=== PATIENT | female | born 1945 | race Caucasian/White ===

== ENCOUNTER 2017-12-29 07:50 | Inpatient (IN) | payer MEDICARE, OTHER ==
[2017-12-29 07:58] VITALS: BMI 32.9
[2017-12-29] MEDS ORDERED: Sodium Chloride 0.9% 1,000 ML IV STA (08:22)
--- NOTE | 2017-12-29 08:22 | C.PDOC ---
History Of Present Illness 72yo female, presents to ED with complaints of fever, cough and congestion for the past 2 weeks. She reports the cough is productive with white sputum. She also reports associated bodyaches. Patient denies any recent travels, sick contact, history of COPD or emphysema. Patient also denies a history of asthma but states she has used an Albuterol pump in the past. She has no other medical complaints. Time Seen by Provider: 12/29/17 08:07 Chief Complaint (Nursing): Flu-like Symptoms History Per: Patient History/Exam Limitations: no limitations Onset/Duration Of Symptoms: Days Current Symptoms Are (Timing): Still Present Sick Contacts (Context): None Associated Symptoms: Fever, Sore Throat, Cough Past Medical History Reviewed: Historical Data, Nursing Documentation, Vital Signs Vital Signs: Last Vital Signs Temp 97.6 F 12/29/17 07:55 Pulse 63 12/29/17 09:44 Resp 18 12/29/17 09:44 BP 98/51 L 12/29/17 09:44 Pulse Ox 96 12/29/17 09:51 - Medical History PMH: Asthma, HTN, Pneumonia Denies: Chronic Kidney Disease Surgical History: Cholecystectomy Family History: States: No Known Family Hx - Social History Hx Alcohol Use: No Hx Substance Use: No - Immunization History Hx Tetanus Toxoid Vaccination: No Hx Influenza Vaccination: Yes Hx Pneumococcal Vaccination: No Review Of Systems Except As Marked, All Systems Reviewed And Found Negative. Cardiovascular: Negative for: Chest Pain Respiratory: Negative for: Shortness of Breath Physical Exam - Physical Exam Additional Physical Exam Comments: Constitutional: No acute distress. Head: Normocephalic. Atraumatic. Eyes: PERRL. ENT: Moist mucous membranes. No pharyngeal erythema or exudates. Neck: Supple. No nuchal rigidity. Cardiovascular: Regular rate. Radial pulse 2+ bilaterally. Chest: No tenderness. Respiratory: Expiratory wheeze bilaterally. GI: Soft. Nontender. Nondistended. Back: No CVA tenderness. Musculoskeletal: No tenderness or swelling of extremities. Skin: No rash. Neurologic: Alert, no focal deficit. ED Course And Treatment - Laboratory Results Result Diagrams: 12/29/17 08:33 12/29/17 08:33 O2 Sat by Pulse Oximetry: 96 (RA) Pulse Ox Interpretation: Normal Medical Decision Making Medical Decision Making: Impression: Cough, congestion, tactile fever x 2 weeks Plan: -- CMP -- CBC -- CXR -- Rapid Flu -- Rapid Strep -- Duoneb 3ml INH -- Toradol 30mg IVP -- IV Fluids 0852 CXR FINDINGS: LUNGS: No active pulmonary disease. PLEURA: No significant pleural effusion identified. No pneumothorax apparent. CARDIOVASCULAR: Normal. OSSEOUS STRUCTURES: Thoracic spondylosis. Bilateral shoulder arthrosis VISUALIZED UPPER ABDOMEN: Normal. OTHER FINDINGS: None. IMPRESSION: No active disease. No interval pathology noted Patient feels mildly better after duoneb but continues to feel short of breath. Peak flow 150. Pulse oximetry 94%. Dr. Schumacher accepts patient to medical service. residential supervisor paged. Disposition Discussed With : Toño Schumacher Jr. Doctor Will See Patient In The: Hospital - Disposition Disposition: HOSPITALIZED Disposition Time: 09:51 Condition: GUARDED Forms: [facility] (Maltese) - Clinical Impression Clinical Impression: Influenza-like illness, Asthma exacerbation, Hypoxia - Scribe Statement The provider has reviewed the documentation as recorded by the Scribe (Sheron Virk) Provider Attestation: All medical record entries made by the Scribe were at my direction and personally dictated by me. I have reviewed the chart and agree that the record accurately reflects my personal performance of the history, physical exam, medical decision making, and the department course for this patient. I have also personally directed, reviewed, and agree with the discharge instructions and disposition.
[2017-12-29] MEDS ORDERED: Albuterol-Ipratrop 3 mg / 0.5 (3 ml) UD IH STA ×3 (08:23→10:00)
[2017-12-29] MEDS ORDERED: Sodium Chloride 0.9% 1,000 ML ONE (08:35)
[2017-12-29] MEDS ORDERED: Albuterol-Ipratrop 3 mg / 0.5 (3 ml) UD ONE ×2 (08:35→10:26)
[2017-12-29 08:38] LABS: BASO # 0.1 K/uL (0.0-0.2); BASO % 1.5 % (0.0-2.0); EOS # 0.3 K/uL (0.0-0.7); EOS % 3.6 % (0.0-4.0); HEMOGLOBIN 12.7 g/dL (11.0-16.0); LYMPH # 2.7 K/uL (1.0-4.3); LYMPH % 32.4 % (20.0-40.0); MEAN CELL VOLUME 90.7 fL (81.0-99.0); MEAN CORPUSCULAR HEMOGLOBIN 31.1 pg (27.0-31.0); MEAN CORPUSCULAR HGB CONC 34.3 g/dL (33.0-37.0); MEAN PLATELET VOLUME 10.4 fL (7.2-11.7); MONO # 0.9 K/uL (0.0-0.8); MONO % 10.3 % (0.0-10.0); NEUT # 4.4 K/uL (1.8-7.0); NEUT % 52.2 % (50.0-75.0); NRBC % 0.1 % (0.0-2.0); RBC 4.1 Mil/uL (3.80-5.20); RED CELL DISTRIBUTION WIDTH 13.4 % (11.5-14.5); WHITE BLOOD COUNT 8.4 K/uL (4.8-10.8)
--- NOTE | 2017-12-29 08:50 | RAD ---
HISTORY: cough COMPARISON: No prior. TECHNIQUE: Chest PA and lateral FINDINGS: LUNGS: No active pulmonary disease. PLEURA: No significant pleural effusion identified. No pneumothorax apparent. CARDIOVASCULAR: Normal. OSSEOUS STRUCTURES: Thoracic spondylosis. Bilateral shoulder arthrosis VISUALIZED UPPER ABDOMEN: Normal. OTHER FINDINGS: None. IMPRESSION: No active disease. No interval pathology noted
[2017-12-29 08:51] LABS: CALCIUM 9.3 mg/dl (8.6-10.4); GFR AFRICAN-AMERICAN > 60; GFR NON-AFRICAN AMERICAN > 60
[2017-12-29 08:53] LABS: ALT/SGPT 20 U/L (9-52); AST/SGOT 29 U/L (14-36); BLOOD UREA NITROGEN 15 mg/dL (7-17)
[2017-12-29 09:22] LABS: INFLUENZA A B NEGATIVE FOR FLU A/B (NEGATIVE)
[2017-12-29] MEDS ORDERED: MethylPREDNISolone 40 mg Vial IVP STA (09:59)
[2017-12-29] MEDS ORDERED: Albuterol-Ipratrop 3 mg / 0.5 (3 ml) UD INH PRN (13:22)
[2017-12-29] MEDS ORDERED: Pneumococcal 23-Valent Vaccine IM ONE (14:11)
--- NOTE | 2017-12-29 14:25 | CP.PCM.HP ---
History of Present Illness - History of Present Illness History of Present Illness: CC: cough/ SOB 72 year old female with past medical history of hypertension, hyperlipidemia, pneumonia and GERD presents to the ED with complaint of cough, sore throat, difficulty breathing for two weeks, and generalized body aches.Patient is [place] speaking and her is at bedside. Patient states for the past two weeks she has had a productive cough that is constant throughout the day and keeps her awake at night. Patient states she has come to the ED today because her symptoms have not gotten better. She states the phlegm is white and thick. With the cough, she states she has had a sore throat, headache and sinus pressure for the two weeks as well. Patient admits to difficulty walking up more than one flight of stairs. Patient denies current fevers or chills but admits to subjective fever last week and total body aches. Patient also complains of diffuse chest pain which she says she has had since she had pneumonia 1 year ago. She says the aches are deep and constant. Patient denies trial of any over the counter medications nor any alleviating factors. Patient is from the [place]. She is a potential poor historian. She states she had a procedure requiring femoral IV access but cannot remember if it was for her heart or for peripheral vascular disease. Patient has been admitted to hospital in the past for pneumonia 1 year ago. Patient denies recent travel or sick contacts. PMD: Dr. Charles Carey Past medical history: HTN, HLD, GERD, potential CAD/PVD? Allergies: seasonal allergies, NKDA Surgical: 2 sections, cholecystectomy, cath 4 years ago? Family history: brother from heart attack at age 42, cousin with cancer "all over" Medications: amlodipine 2.5 mg po daily, ergocalciferol 50,000 unit once/week, lovastatin 20 mg po daily, lisinopril/hydrochlorthiazide 25/20 po daily, famotidine 40mg daily, dorzolamide 2%/timolol.5% 1 drop OP daily Social: denies lifetime tobacco use, denies recreational drug use, admits to social alcohol use once/month. Patient is unemployed. ROS: negatives: chills, nausea, vomiting, constipation, diarrhea, leg swelling, weight changes Positives: fever (last week), headache, sinus pressure, sore throat, body aches , cough, shortness of breath, acid reflux. Present on Admission - Present on Admission Any Indicators Present on Admission: No History of DVT/PE: No History of Uncontrolled Diabetes: No Urinary Catheter: No Decubitus Ulcer Present: No Review of Systems - Constitutional Constitutional: Fatigue, Lethargy. absent: Fever - EENT Eyes: absent: Blurred Vision Nose/Mouth/Throat: Nasal Congestion, Sore Throat - Cardiovascular Cardiovascular: Chest Pain, Dyspnea, Dyspnea on Exertion. absent: Palpitations - Respiratory Respiratory: Cough, Wheezing, Chest Congestion, Excessive Mucous Production, Pain with Coughing - Gastrointestinal Gastrointestinal: absent: Constipation, Diarrhea, Nausea, Vomiting - Genitourinary Genitourinary: absent: Difficulty Urinating, Dysuria, Hematuria - Musculoskeletal Musculoskeletal: Myalgias - Integumentary Integumentary: absent: Rash - Neurological Neurological: absent: Numbness, Tingling - Endocrine Endocrine: absent: Palpitations - Hematologic/Lymphatic Hematologic: absent: Easy Bleeding, Easy Bruising Past Patient History - Past Medical History & Family History Past Medical History?: Yes - Past Social History Smoking Status: Never Smoked - CARDIAC Hx Cardiac Disorders: Yes Hx Hypertension: Yes - PULMONARY Hx Respiratory Disorders: Yes Hx Asthma: Yes Hx Pneumonia: Yes - NEUROLOGICAL Hx Neurological Disorder: No - HEENT Hx HEENT Problems: No - RENAL Hx Chronic Kidney Disease: No - ENDOCRINE/METABOLIC Hx Endocrine Disorders: No - HEMATOLOGICAL/ONCOLOGICAL Hx Blood Disorders: No - INTEGUMENTARY Hx Dermatological Problems: No - MUSCULOSKELETAL/RHEUMATOLOGICAL Hx Musculoskeletal Disorders: No Hx Falls: No - GASTROINTESTINAL Hx Gastrointestinal Disorders: No - GENITOURINARY/GYNECOLOGICAL Hx Genitourinary Disorders: No - PSYCHIATRIC Hx Substance Use: No - SURGICAL HISTORY Hx Surgeries: Yes Hx Cholecystectomy: Yes - ANESTHESIA Hx Anesthesia: Yes Hx Anesthesia Reactions: No Hx Malignant Hyperthermia: No Has any member of the family had a problem w/ anesthesia?: No Meds Allergies/Adverse Reactions: Allergies Allergy/AdvReac Type Severity Reaction Status Date / Time No Known Allergies Allergy Verified 12/29/17 07:52 Physical Exam - Constitutional Appears: Non-toxic, No Acute Distress - Head Exam Head Exam: ATRAUMATIC, NORMAL INSPECTION, NORMOCEPHALIC - Eye Exam Eye Exam: EOMI, Normal appearance - ENT Exam ENT Exam: Mucous Membranes Moist, Normal Oropharynx - Neck Exam Neck exam: Negative for: Tenderness - Respiratory Exam Respiratory Exam: Chest Wall Tenderness, Decreased Breath Sounds. absent: Rales , Rhonchi, Wheezes - Cardiovascular Exam Cardiovascular Exam: REGULAR RHYTHM, RRR, +S1, +S2, Systolic Murmur Additional comments: Chest wall tenderness to palpation - GI/Abdominal Exam GI & Abdominal Exam: Normal Bowel Sounds, Soft. absent: Tenderness - Extremities Exam Extremities exam: Positive for: normal inspection, pedal edema. Negative for: calf tenderness - Back Exam Back exam: NORMAL INSPECTION. absent: CVA tenderness (L), CVA tenderness (R) - Neurological Exam Neurological exam: Alert, Oriented x3 - Psychiatric Exam Psychiatric exam: Normal Affect, Normal Mood - Skin Skin Exam: Intact, Normal Color, Warm Results - Vital Signs Recent Vital Signs: Last Vital Signs Temp 98 F 12/29/17 13:06 Pulse 61 12/29/17 13:30 Resp 20 12/29/17 13:41 BP 122/77 12/29/17 13:06 Pulse Ox 94 L 12/29/17 13:06 - Labs Result Diagrams: 12/29/17 08:33 12/29/17 08:33 Labs: Laboratory Results - last 24 hr 12/29/17 12/29/17 12/29/17 08:22 08:33 08:33 WBC 8.4 RBC 4.10 Hgb 12.7 Hct 37.2 MCV 90.7 MCH 31.1 H MCHC 34.3 RDW 13.4 Plt Count 196 MPV 10.4 Neut % (Auto) 52.2 Lymph % (Auto) 32.4 [place] % (Auto) 10.3 H Eos % (Auto) 3.6 Baso % (Auto) 1.5 Neut # (Auto) 4.4 Lymph # (Auto) 2.7 [place] # (Auto) 0.9 H Eos # (Auto) 0.3 Baso # (Auto) 0.1 Sodium 145 Potassium 4.1 Chloride 103 Carbon Dioxide 26 Anion Gap 20 BUN 15 Creatinine 0.5 L Est GFR ( Amer) > 60 Est GFR (Non-Af Amer) > 60 Random Glucose 120 H Calcium 9.3 Total Bilirubin 0.9 AST 29 ALT 20 Alkaline Phosphatase 61 NT-Pro-B Natriuret Pep Total Protein 7.9 Albumin 4.0 Globulin 3.9 Albumin/Globulin Ratio 1.0 Influenza Typ A,B (EIA) Negative for flu a/b Grp A Beta Strep Ag Negative 12/29/17 13:33 WBC RBC Hgb Hct MCV MCH MCHC RDW Plt Count MPV Neut % (Auto) Lymph % (Auto) [place] % (Auto) Eos % (Auto) Baso % (Auto) Neut # (Auto) Lymph # (Auto) [place] # (Auto) Eos # (Auto) Baso # (Auto) Sodium Potassium Chloride Carbon Dioxide Anion Gap BUN Creatinine Est GFR ( Amer) Est GFR (Non-Af Amer) Random Glucose Calcium Total Bilirubin AST ALT Alkaline Phosphatase NT-Pro-B Natriuret Pep 80.2 Total Protein Albumin Globulin Albumin/Globulin Ratio Influenza Typ A,B (EIA) Grp A Beta Strep Ag Assessment & Plan - Assessment and Plan (Free Text) Assessment: Influenza Like Illness Peak flow 150 flu negative strep negative Pro-BNP: 80.2 Pulm consulted, Dr. Martin, help appreciated Meds: Duonebs q4h, q2h prn Solumedrol 125mg ivp given in ED, continue 40mg ivp q8h Ceftriaxone 1gm daily Azithromycin 500mg daily T Wave Inversions Lateral T wave inversions on EKG Cardiology, Dr. Iyer, consulted help appreciated ASA 325mg stat 2mg Magnesium given ASA 81mg daily ANASTACIA x 3, first Troponin I negative ECHO f/u CMP HTN continue home medications: Amlodipine 2.5mg po daily HCTZ 25mg po daily Lisinopril stopped due to cough, Losartan 25mg po daily started HLD Lovastatin NF start Crestor 2.5 mg HS GERD Pepcid 40mg po daily Prophylaxis Pepcid 40mg po daily Heparin 5000 u q12h, SCDs Heart Healthy Diet
[2017-12-29] MEDS: Azithromycin 500 MG in Sodium Chloride 0.9% 250 ML IVPB SCH (14:59)
[2017-12-29] MEDS: Albuterol-Ipratrop 3 mg / 0.5 (3 ml) UD INH SCH ×2 (15:41→20:07)
[2017-12-29 15:52] LABS: CK-MB 0.46 ng/mL (0.0-3.38)
--- NOTE | 2017-12-29 16:13 | CP.PCM.CON ---
History of Present Illness - History of Present Illness History of Present Illness: Reason for consult: shortness of breath and cough for 2 weeks 72F with PMHx of asthma presented to the ED with complaints of fever, cough, congestion and shortness of breath for 2 weeks. The cough is productive of white sputum. She denies any history of pulmonary diseases but notes she used an albuterol inhaler in the past. In the ED the patient's shortness of breath improved but remained after receiving nebullizer treatments. Patient seen and examined at bedside in no acute distress. Patient coughed during the interview and had increased effort of respiration. PMHx: asthma, HTN, arthritis PSH: cholecystectomy SH: no history of alcohol or substance use 1. Asthma exacerbation - CXR 12/29: No active pulmonary disease - Afebrile - WBC 8.4 - Flu negative - Nebullizer treatments - solu-medrol - IV zithromax and rocephin for empiric coverage - Peak flow 150. Pulse ox 94%-96% on RA 2. Acute cough, unclear etiology - 12/29 Pro- BNP = 80.2 Past Patient History - Past Medical History & Family History Past Medical History?: Yes - Past Social History Smoking Status: Never Smoked - CARDIAC Hx Cardiac Disorders: Yes Hx Hypertension: Yes - PULMONARY Hx Respiratory Disorders: Yes Hx Asthma: Yes Hx Pneumonia: Yes - NEUROLOGICAL Hx Neurological Disorder: No - HEENT Hx HEENT Problems: No - RENAL Hx Chronic Kidney Disease: No - ENDOCRINE/METABOLIC Hx Endocrine Disorders: No - HEMATOLOGICAL/ONCOLOGICAL Hx Blood Disorders: No - INTEGUMENTARY Hx Dermatological Problems: No - MUSCULOSKELETAL/RHEUMATOLOGICAL Hx Musculoskeletal Disorders: No Hx Falls: No - GASTROINTESTINAL Hx Gastrointestinal Disorders: No - GENITOURINARY/GYNECOLOGICAL Hx Genitourinary Disorders: No - PSYCHIATRIC Hx Substance Use: No - SURGICAL HISTORY Hx Surgeries: Yes Hx Cholecystectomy: Yes - ANESTHESIA Hx Anesthesia: Yes Hx Anesthesia Reactions: No Hx Malignant Hyperthermia: No Has any member of the family had a problem w/ anesthesia?: No Meds Allergies/Adverse Reactions: Allergies Allergy/AdvReac Type Severity Reaction Status Date / Time No Known Allergies Allergy Verified 12/29/17 07:52 - Medications Medications: Current Medications Albuterol/Ipratropium (Duoneb 3 Mg/0.5 Mg (3 Ml) Ud) 3 ml INH RQ4 [facility] Last Admin: 12/29/17 15:41 Dose: 3 ml Albuterol/Ipratropium (Duoneb 3 Mg/0.5 Mg (3 Ml) Ud) 3 ml INH RQ2 PRN PRN Reason: Shortness of Breath Amlodipine Besylate (Norvasc) 2.5 mg PO DAILY [facility] Aspirin (Ecotrin) 81 mg PO DAILY [facility] Ergocalciferol (Drisdol 50,000 Intl Units Cap) 1 cap PO QWK [facility] Famotidine (Pepcid) 40 mg PO DAILY [facility] Hydrochlorothiazide (Hydrodiuril) 25 mg PO DAILY [facility] Ceftriaxone Sodium 1 gm/ (Sodium Chloride) 100 mls @ 100 mls/hr IVPB DAILY [facility] PRN Reason: Protocol Last Admin: 12/29/17 13:57 Dose: 100 mls/hr Azithromycin 500 mg/ Sodium (Chloride) 250 mls @ 250 mls/hr IVPB DAILY [facility] PRN Reason: Protocol Last Admin: 12/29/17 14:59 Dose: 250 mls/hr Lisinopril (Zestril) 20 mg PO DAILY [facility] Methylprednisolone (Solu-Medrol) 40 mg IVP Q8H [facility] Pneumococcal Polyvalent Vaccine (Pneumovax 23 Vaccine) 0.5 ml IM .ONCE ONE Stop: 12/30/17 10:01 Rosuvastatin Calcium (Crestor) 2.5 mg PO HS [facility] Results - Vital Signs Recent Vital Signs: Last Vital Signs Temp 97.9 F 12/29/17 15:06 Pulse 75 12/29/17 15:42 Resp 20 12/29/17 15:06 BP 106/69 12/29/17 15:06 Pulse Ox 95 12/29/17 15:06 - Labs Result Diagrams: 12/29/17 08:33 12/29/17 08:33 Labs: Laboratory Results - last 24 hr 12/29/17 12/29/17 12/29/17 08:22 08:33 08:33 WBC 8.4 RBC 4.10 Hgb 12.7 Hct 37.2 MCV 90.7 MCH 31.1 H MCHC 34.3 RDW 13.4 Plt Count 196 MPV 10.4 Neut % (Auto) 52.2 Lymph % (Auto) 32.4 [place] % (Auto) 10.3 H Eos % (Auto) 3.6 Baso % (Auto) 1.5 Neut # (Auto) 4.4 Lymph # (Auto) 2.7 [place] # (Auto) 0.9 H Eos # (Auto) 0.3 Baso # (Auto) 0.1 Sodium 145 Potassium 4.1 Chloride 103 Carbon Dioxide 26 Anion Gap 20 BUN 15 Creatinine 0.5 L Est GFR ( Amer) > 60 Est GFR (Non-Af Amer) > 60 Random Glucose 120 H Calcium 9.3 Total Bilirubin 0.9 AST 29 ALT 20 Alkaline Phosphatase 61 Total Creatine Kinase CK-MB (Mass) Troponin I NT-Pro-B Natriuret Pep Total Protein 7.9 Albumin 4.0 Globulin 3.9 Albumin/Globulin Ratio 1.0 Influenza Typ A,B (EIA) Negative for flu a/b Grp A Beta Strep Ag Negative 12/29/17 12/29/17 13:33 15:17 WBC RBC Hgb Hct MCV MCH MCHC RDW Plt Count MPV Neut % (Auto) Lymph % (Auto) [place] % (Auto) Eos % (Auto) Baso % (Auto) Neut # (Auto) Lymph # (Auto) [place] # (Auto) Eos # (Auto) Baso # (Auto) Sodium Potassium Chloride Carbon Dioxide Anion Gap BUN Creatinine Est GFR ( Amer) Est GFR (Non-Af Amer) Random Glucose Calcium Total Bilirubin AST ALT Alkaline Phosphatase Total Creatine Kinase 39 CK-MB (Mass) 0.46 Troponin I < 0.0120 NT-Pro-B Natriuret Pep 80.2 Total Protein Albumin Globulin Albumin/Globulin Ratio Influenza Typ A,B (EIA) Grp A Beta Strep Ag
--- NOTE | 2017-12-29 16:36 | CP.PCM.CON ---
History of Present Illness - History of Present Illness History of Present Illness: ASKED TO SEE PT FOR CARDIAC CONSULT BY DR MACIEL (COVERAGE) 72 Y/O ADMITTED WITH SOB, DYSPNEA AND COUGH X 1 WEEK. PT STATES SHE HAS HAD DIFFUSE BODY ACHES AND CP. HER CP IS MID CHEST/STERNAL REGION, NONRADIATING, OCCURS MAINLY WITH COUGHING. NO DIZZINESS, LH, NAUSEA VOMITTING. PT STATES SHE HAD COUGH WITH FLU 1 YEAR AGO WITH CHEST DISCOMFORT AT THAT TIME. PT ALSO C /O DYSPNEA WITH ONE FLIGHT OF STAIRS. EKG REVEALS SR WITH LAT T WAVE INVERSIONS. PTS CP IS REPRODUCIBLE WITH PALPATION, PRIOR EKG IN 2016 SHOWS LAT T WAVE INVERSIONS. Review of Systems - Constitutional Constitutional: As Per HPI, Fatigue, Weakness. absent: Anorexia, Chills, Daytime Sleepiness, Excessive Sweating, Fever, Frequent Falls, Headache, Increased Appetite, Lethargy, Malaise, Night Sweats, Snoring, Sleep Apnea, Weight Gain, Weight Loss, Other - EENT Eyes: As Per HPI. absent: Blind Spots, Blurred Vision, Change in Vision, Decreased Night Vision, Diplopia, Discharge, Dry Eye, Exophthalmos, Floaters, Irritation, Itchy Eyes, Loss of Peripheral Vision, Pain, Photophobia, Requires Corrective Lenses, Sees Flashes, Spots in Vision, Tunnel Vision, Other Visual Disturbances, Loss of Vision, Other Ears: As Per HPI. absent: Decreased Hearing, Ear Discharge, Ear Pain, Tinnitus , Abnormal Hearing, Disequilibrium, Dizziness, Other Nose/Mouth/Throat: As Per HPI, Post Nasal Drip. absent: Epistaxis, Nasal Congestion, Nasal Discharge, Nasal Obstruction, Nasal Trauma, Nose Pain, Sinus Pain, Sinus Pressure, Bleeding Gums, Change in Voice, Dental Pain, Dry Mouth, Dysphagia, Halitosis, Hoarsness, Lip Swelling, Mouth Lesions, Mouth Pain, Odynophagia, Sore Throat, Throat Swelling, Tongue Swelling, Facial Pain, Neck Pain, Neck Mass, Other - Breasts Breasts: As Per HPI. absent: Change in Shape, Mass, Pain, Nipple Discharge, Nipple Inversion, Skin Changes, Swelling, Other - Cardiovascular Cardiovascular: As Per HPI, Chest Pain, Dyspnea on Exertion, Edema, Pedal Edema. absent: Acrocyanosis, Chest Pain at Rest, Chest Pain with Activity, Claudication, Diaphoresis, Dyspnea, Irregular Heart Rhythm, Pain Radiating to Arm/Neck/Jaw, Leg Edema, Leg Ulcers, Lightheadedness, Orthopnea, Palpitations, Paroxysmal Nocturnal Dyspnea, Radiating Pain, Rapid Heart Rate, Slow Heart Rate , Syncope, Other - Respiratory Respiratory: As Per HPI, Cough, Dyspnea, Chest Congestion, Excessive Mucous Production. absent: Hemoptysis, Dyspnea on Exertion, Wheezing, Snoring, Stridor , Pain on Inspiration, Change in Mucous Color, Pain with Coughing, Other - Gastrointestinal Gastrointestinal: As Per HPI. absent: Abdominal Pain, Belching, Bloating, Change in Bowel Habits, Change in Stool Character, Coffee Ground Emesis, Constipation, Cramping, Diarrhea, Dyspepsia, Dysphagia, Early Satiety, Excessive Flatus, Fecal Incontinence, Heartburn, Hematemesis, Hematochezia, Loose Stools, Melena, Nausea, Odynophagia, Temesmus, Vomiting, Other - Genitourinary Genitourinary: As Per HPI. absent: Change in Urinary Stream, Difficulty Urinating, Dysuria, Flank Pain, Hematuria, Pyuria, Nocturia, Urinary Incontinence, Urinary Frequency, Urinary Hesitance, Urinary Urgency, Voiding Freq/Small Amts, Freq UTI, Hx Renal/Bladder Calculi, Hx /Renal Surgery, Bladder Distension, Other - Reproductive: Female Reproductive:Female: As Per HPI. absent: Amenorrhea, Amenorrhea/ Control, Currently Menstual, Cycle <21 Days, Cycle >35 Days, Cycle Variable, Menses 1-7 Days, Menses >/= 8 Days, Menses Variable, Cycle > 4 Weeks Between, No Menses for 6 Months, Heavy Menses, Light Menses, Normal Menses, Spotting Between Cycles , S/P Hysterectomy, Menopausal, Post Menopausal, Premenarche, Abnormal Vaginal Bleeding, Dysmenorrhea, Dyspareunia, Genital Lesions, Genital Pruritis, Pelvic Pain, Prolapse Symptoms, Sexual Dysfunction, Vaginal Discharge, Vaginal Dryness , Vaginal Odor, Vaginal Pruritis, Other - Menstruation Menstruation: As Per HPI. absent: Amenorrhea, Amenorrhea/ Control, Currently Menstual, Cycle <21 Days, Cycle >35 Days, Cycle Variable, Menses 1-7 Days, Menses >/= 8 Days, Menses Variable, Cycle > 4 Weeks Between, No Menses for 6 Months, Heavy Menses, Light Menses, Normal Menses, Spotting Between Cycles , S/P Hysterectomy, Menopausal, Post Menopausal, Premenarche, Abnormal Vaginal Bleeding, Dysmenorrhea, Other - Musculoskeletal Musculoskeletal: As Per HPI. absent: Abnormal Gait, Arthralgias, Atrophy, Back Pain, Deformity, Joint Swelling, Limited Range of Motion, Loss of Height, Muscle Cramps, Muscle Weakness, Myalgias, Neck Pain, Numbness, Radiating Pain into Limb, Stiffness, Tingling, Other - Integumentary Integumentary: As Per HPI. absent: Acne, Alopecia, Bleeding Lesions, Change in Hair, Change in Nails, Change in Pigmentation, Changing Lesions, Dry Skin, Erythema, Furuncle, Hirsutism, Lesions, New Lesions, Non-Healing Lesions, Photosensitivity, Pruritus, Rash, Skin Pain, Skin Ulcer, Sores, Striae, Swelling , Unusual Bruising, Wounds, Jaundice, Other - Neurological Neurological: As Per HPI. absent: Abnormal Gait, Abnormal Hearing, Abnormal Movements, Abnormal Speech, Behavioral Changes, Burning Sensations, Confusion, Convulsions, Disequilibrium, Dizziness, Numbness, Focal Weakness, Frequent Falls , Headaches, Lack of Coordination, Loss of Vision, Memory Loss, Paresthesias, Radicular Pain, Restless Legs, Sensory Deficit, Syncope, Tingling, Tremor, Vertigo, Weakness, Other Visual Disturbances, Other - Psychiatric Psychiatric: As Per HPI. absent: Abnormal Sleep Pattern, Anhedonia, Anxiety, Auditory Hallucinations, Behavioral Changes, Change in Appetite, Change in Libido, Confusion, Depression, Difficulty Concentrating, Hallucinations, Homicidal Ideation, Hopelessness, Irritability, Memory Loss, Mood Swings, Panic Attacks, Paranoia, Suicidal Ideation, Visual Hallucinations, Tactile Hallucinations, Other - Endocrine Endocrine: As Per HPI. absent: Change in Body Appearance, Change in Libido, Cold Intolorance, Deepening of Voice, Excessive Sweating, Fatigue, Flushing, Heat Intolorance, Increase in Ring/Shoe/Hat Size, Palpitations, Polydipsia, Polyphagia, Polyuria, Other Past Patient History - Past Medical History & Family History Past Medical History?: Yes - Past Social History Smoking Status: Never Smoked Chewing Tobacco Use: No Cigar Use: No Drugs: Denies Home Situation {Lives}: With Family - CARDIAC Hx Cardiac Disorders: Yes Hx Hypertension: Yes - PULMONARY Hx Respiratory Disorders: Yes Hx Asthma: Yes Hx Pneumonia: Yes - NEUROLOGICAL Hx Neurological Disorder: No - HEENT Hx HEENT Problems: No - RENAL Hx Chronic Kidney Disease: No - ENDOCRINE/METABOLIC Hx Endocrine Disorders: No - HEMATOLOGICAL/ONCOLOGICAL Hx Blood Disorders: No - INTEGUMENTARY Hx Dermatological Problems: No - MUSCULOSKELETAL/RHEUMATOLOGICAL Hx Musculoskeletal Disorders: No Hx Falls: No - GASTROINTESTINAL Hx Gastrointestinal Disorders: No - GENITOURINARY/GYNECOLOGICAL Hx Genitourinary Disorders: No - PSYCHIATRIC Hx Substance Use: No - SURGICAL HISTORY Hx Surgeries: Yes Hx Cholecystectomy: Yes - ANESTHESIA Hx Anesthesia: Yes Hx Anesthesia Reactions: No Hx Malignant Hyperthermia: No Has any member of the family had a problem w/ anesthesia?: No Meds Allergies/Adverse Reactions: Allergies Allergy/AdvReac Type Severity Reaction Status Date / Time No Known Allergies Allergy Verified 12/29/17 07:52 - Medications Medications: Current Medications Albuterol/Ipratropium (Duoneb 3 Mg/0.5 Mg (3 Ml) Ud) 3 ml INH RQ4 [facility] Last Admin: 12/29/17 15:41 Dose: 3 ml Albuterol/Ipratropium (Duoneb 3 Mg/0.5 Mg (3 Ml) Ud) 3 ml INH RQ2 PRN PRN Reason: Shortness of Breath Amlodipine Besylate (Norvasc) 2.5 mg PO DAILY [facility] Aspirin (Ecotrin) 81 mg PO DAILY [facility] Ergocalciferol (Drisdol 50,000 Intl Units Cap) 1 cap PO QWK [facility] Famotidine (Pepcid) 40 mg PO DAILY [facility] Hydrochlorothiazide (Hydrodiuril) 25 mg PO DAILY [facility] Ceftriaxone Sodium 1 gm/ (Sodium Chloride) 100 mls @ 100 mls/hr IVPB DAILY [facility] PRN Reason: Protocol Last Admin: 12/29/17 13:57 Dose: 100 mls/hr Azithromycin 500 mg/ Sodium (Chloride) 250 mls @ 250 mls/hr IVPB DAILY [facility] PRN Reason: Protocol Last Admin: 12/29/17 14:59 Dose: 250 mls/hr Magnesium Sulfate/Dextrose (Magnesium Sulfate 1 Gm/100 Ml D5w) 1 gm in 100 mls @ 300 mls/hr IVPB Q30M [facility] Stop: 12/29/17 17:19 Lisinopril (Zestril) 20 mg PO DAILY [facility] Methylprednisolone (Solu-Medrol) 40 mg IVP Q8H [facility] Pneumococcal Polyvalent Vaccine (Pneumovax 23 Vaccine) 0.5 ml IM .ONCE ONE Stop: 12/30/17 10:01 Rosuvastatin Calcium (Crestor) 2.5 mg PO HS [facility] Physical Exam - Constitutional Appears: Non-toxic - Head Exam Head Exam: ATRAUMATIC, NORMAL INSPECTION, NORMOCEPHALIC - Eye Exam Eye Exam: EOMI, Normal appearance, PERRL. absent: Conjunctival injection, Nystagmus, Periorbital swelling, Periorbital tenderness, Scleral icterus Pupil Exam: NORMAL ACCOMODATION, PERRL. absent: Fixed, Irregular, Miosis, Mydriatic, Unequal - ENT Exam ENT Exam: Mucous Membranes Moist, Normal Exam. absent: Mucous Membranes Dry, Normal External Ear Exam, Normal Oropharynx, TM's Normal Bilaterally - Neck Exam Neck exam: Positive for: Normal Inspection. Negative for: Full Rom, Lymphadenopathy, Meningismus, Tenderness, Thyromegaly - Respiratory Exam Respiratory Exam: Clear to Auscultation Bilateral, NORMAL BREATHING PATTERN. absent: Accessory Muscle Use, Chest Wall Tenderness, Decreased Breath Sounds, Prolonged Expiratory Phase, Rales, Rhonchi, Wheezes, Respiratory Distress, Stridor - Cardiovascular Exam Cardiovascular Exam: REGULAR RHYTHM, +S1, +S2, Systolic Murmur. absent: Bradycardia, Tachycardia, Clicks, Diastolic murmur, Gallop, Irregular Rhythm, JVD, RRR, Rubs, +S4 - GI/Abdominal Exam GI & Abdominal Exam: Normal Bowel Sounds, Soft. absent: Bruit, Diminished Bowel Sounds, Distended, Firm, Guarding, Hernia, Hyperactive Bowel Sounds, Hypoactive Bowel Sounds, Mass, Organomegaly, Pulsatile Mass, Rebound, Rigid, Tenderness - Rectal Exam Rectal Exam: Deferred - Extremities Exam Extremities exam: Positive for: pedal edema, pedal pulses present. Negative for : calf tenderness, full ROM, joint swelling, normal capillary refill, normal inspection, tenderness - Back Exam Back exam: NORMAL INSPECTION. absent: CVA tenderness (L), CVA tenderness (R), FULL ROM, muscle spasm, paraspinal tenderness, rash noted, tenderness, vertebral tenderness - Neurological Exam Neurological exam: Alert, CN II-XII Intact, Oriented x3, Reflexes Normal - Psychiatric Exam Psychiatric exam: Normal Affect, Normal Mood - Skin Skin Exam: Dry, Intact, Normal Color, Warm Results - Vital Signs Recent Vital Signs: Last Vital Signs Temp 97.9 F 12/29/17 15:06 Pulse 75 12/29/17 15:42 Resp 20 12/29/17 15:06 BP 106/69 12/29/17 15:06 Pulse Ox 95 12/29/17 15:06 - Labs Result Diagrams: 12/29/17 08:33 12/29/17 08:33 Labs: Laboratory Results - last 24 hr 12/29/17 12/29/17 12/29/17 08:22 08:33 08:33 WBC 8.4 RBC 4.10 Hgb 12.7 Hct 37.2 MCV 90.7 MCH 31.1 H MCHC 34.3 RDW 13.4 Plt Count 196 MPV 10.4 Neut % (Auto) 52.2 Lymph % (Auto) 32.4 [place] % (Auto) 10.3 H Eos % (Auto) 3.6 Baso % (Auto) 1.5 Neut # (Auto) 4.4 Lymph # (Auto) 2.7 [place] # (Auto) 0.9 H Eos # (Auto) 0.3 Baso # (Auto) 0.1 Sodium 145 Potassium 4.1 Chloride 103 Carbon Dioxide 26 Anion Gap 20 BUN 15 Creatinine 0.5 L Est GFR ( Amer) > 60 Est GFR (Non-Af Amer) > 60 Random Glucose 120 H Calcium 9.3 Total Bilirubin 0.9 AST 29 ALT 20 Alkaline Phosphatase 61 Total Creatine Kinase CK-MB (Mass) Troponin I NT-Pro-B Natriuret Pep Total Protein 7.9 Albumin 4.0 Globulin 3.9 Albumin/Globulin Ratio 1.0 Influenza Typ A,B (EIA) Negative for flu a/b Grp A Beta Strep Ag Negative 12/29/17 12/29/17 13:33 15:17 WBC RBC Hgb Hct MCV MCH MCHC RDW Plt Count MPV Neut % (Auto) Lymph % (Auto) [place] % (Auto) Eos % (Auto) Baso % (Auto) Neut # (Auto) Lymph # (Auto) [place] # (Auto) Eos # (Auto) Baso # (Auto) Sodium Potassium Chloride Carbon Dioxide Anion Gap BUN Creatinine Est GFR ( Amer) Est GFR (Non-Af Amer) Random Glucose Calcium Total Bilirubin AST ALT Alkaline Phosphatase Total Creatine Kinase 39 CK-MB (Mass) 0.46 Troponin I < 0.0120 NT-Pro-B Natriuret Pep 80.2 Total Protein Albumin Globulin Albumin/Globulin Ratio Influenza Typ A,B (EIA) Grp A Beta Strep Ag - EKG Data EKG Interpreted by: Myself EKG shows normal: Sinus rhythm, ST-T waves Rate: Normal Assessment & Plan (1) Abnormal EKG Status: Acute (2) Chest pain Status: Acute (3) SOB (shortness of breath) Status: Acute (4) Edema Status: Acute (5) Murmur, cardiac Status: Acute - Assessment and Plan (Free Text) Plan: PT SHOULD HAVE ECHO TO EVAL LVEF AND MURMUR. MONITOR LYTES. WOULD CHANGE ACEI TO ARB GIVEN FREQUENT COUGH HISTORY. TROP X 2. REPEAT EKG DAILY X 2. ASA 81 MG. STRESS TESTING MAY BE DONE ONCE ACUTE URI HAS RESOLVED. CHECK TFTS.
[2017-12-29] MEDS: Magnesium Sulfate 1 gm in D5W 1 GM/100 ML BAG IVPB SCH ×2 (17:30→18:47)
[2017-12-29 20:35] LABS: CK-MB 0.34 ng/mL (0.0-3.38)
[2017-12-29] MEDS: Rosuvastatin Calcium 2.5 mg Tab PO SCH (21:25)
--- NOTE | 2017-12-29 23:39 | CARD ---
APPROVED REPORT EKG Measurement Heart [id number] <Conclusion> Unusual P axis, possible ectopic atrial rhythm Left axis deviation Inferior infarct, age undetermined Anterior infarct, age undetermined Abnormal ECG
[2017-12-30] MEDS: Albuterol-Ipratrop 3 mg / 0.5 (3 ml) UD INH SCH ×6 (01:06→19:35)
[2017-12-30 02:21] LABS: CK-MB 0.47 ng/mL (0.0-3.38)
[2017-12-30] MEDS ORDERED: MethylPREDNISolone 40 mg Vial IVP SCH (07:00)
[2017-12-30 07:45] LABS: BASO % 0.1 % (0.0-2.0); HEMOGLOBIN 12.3 g/dL (11.0-16.0); LYMPH # 2.1 K/uL (1.0-4.3); LYMPH % 13.8 % (20.0-40.0); MEAN CELL VOLUME 90.7 fL (81.0-99.0); MEAN CORPUSCULAR HGB CONC 34.2 g/dL (33.0-37.0); MEAN PLATELET VOLUME 10.2 fL (7.2-11.7); MONO # 0.9 K/uL (0.0-0.8); MONO % 6.1 % (0.0-10.0); NEUT # 11.9 K/uL (1.8-7.0); NRBC % 0.1 % (0.0-2.0); RBC 3.97 Mil/uL (3.80-5.20); RED CELL DISTRIBUTION WIDTH 13.4 % (11.5-14.5)
[2017-12-30 07:47] LABS: ALB/GLOB RATIO 1.1 (1.0-2.1); ALBUMIN 4.1 g/dL (3.5-5.0); GFR AFRICAN-AMERICAN > 60; GFR NON-AFRICAN AMERICAN > 60; HDL CHOLESTEROL 62 mg/dL (30-70)
[2017-12-30 07:52] LABS: WHITE BLOOD COUNT 14.9 K/uL (4.8-10.8)
[2017-12-30 07:52] LABS: ALT/SGPT 22 U/L (9-52); AST/SGOT 28 U/L (14-36); BLOOD UREA NITROGEN 12 mg/dL (7-17)
[2017-12-30 07:59] LABS: LDL CHOLESTEROL 47 mg/dL (0-129)
[2017-12-30 08:27] LABS: T3 1.12 nmol/L (1.49-2.60)
[2017-12-30] MEDS ORDERED: Pneumococcal 23-Valent Vaccine IM ONE (10:00)
[2017-12-30] MEDS: Azithromycin 500 MG in Sodium Chloride 0.9% 250 ML IVPB SCH (11:23)
[2017-12-30] MEDS: MethylPREDNISolone 40 mg Vial IVP SCH ×2 (11:24→21:35)
--- NOTE | 2017-12-30 12:53 | CP.PCM.PN ---
Subjective - Date & Time of Evaluation Date of Evaluation: 12/30/17 Time of Evaluation: 12:52 - Subjective Subjective: Patient seen and examined at bedside States she is breathing better, chest pain resolved. Still some cough but no chills or fever. No other complaints at this time Objective - Vital Signs/Intake and Output Vital Signs (last 24 hours): Temp Pulse Resp BP Pulse Ox 97.6 F 54 L 20 117/74 96 12/30/17 07:10 12/30/17 08:03 12/30/17 07:10 12/30/17 07:10 12/30/17 07:10 Intake and Output: 12/30/17 12/30/17 06:59 18:59 Intake Total 650 Balance 650 - Medications Medications: Current Medications Albuterol/Ipratropium (Duoneb 3 Mg/0.5 Mg (3 Ml) Ud) 3 ml INH RQ4 [facility] Last Admin: 12/30/17 11:43 Dose: 3 ml Amlodipine Besylate (Norvasc) 2.5 mg PO DAILY [facility] Last Admin: 12/30/17 09:27 Dose: 2.5 mg Aspirin (Ecotrin) 81 mg PO DAILY [facility] Last Admin: 12/30/17 11:23 Dose: 81 mg Ergocalciferol (Drisdol 50,000 Intl Units Cap) 1 cap PO QWK [facility] Hydrochlorothiazide (Hydrodiuril) 25 mg PO DAILY [facility] Last Admin: 12/30/17 09:27 Dose: 25 mg Ceftriaxone Sodium 1 gm/ (Sodium Chloride) 100 mls @ 100 mls/hr IVPB DAILY [facility] PRN Reason: Protocol Last Admin: 12/30/17 09:28 Dose: 100 mls/hr Azithromycin 500 mg/ Sodium (Chloride) 250 mls @ 250 mls/hr IVPB DAILY [facility] PRN Reason: Protocol Last Admin: 12/30/17 11:23 Dose: 250 mls/hr Losartan Potassium (Cozaar) 25 mg PO DAILY [facility] Last Admin: 12/30/17 09:27 Dose: 25 mg Methylprednisolone (Solu-Medrol) 40 mg IVP Q12 [facility] Last Admin: 12/30/17 11:24 Dose: 40 mg Rosuvastatin Calcium (Crestor) 2.5 mg PO HS [facility] Last Admin: 12/29/17 21:25 Dose: 2.5 mg - Labs Labs: 12/30/17 07:51 12/30/17 07:20 - Constitutional Appears: Well - Head Exam Head Exam: ATRAUMATIC, NORMAL INSPECTION, NORMOCEPHALIC - Eye Exam Eye Exam: EOMI, Normal appearance, PERRL Pupil Exam: NORMAL ACCOMODATION, PERRL - ENT Exam ENT Exam: Mucous Membranes Moist, Normal Exam - Neck Exam Neck Exam: Full ROM, Normal Inspection. absent: Lymphadenopathy - Respiratory Exam Respiratory Exam: Wheezes. absent: Respiratory Distress - Cardiovascular Exam Cardiovascular Exam: REGULAR RHYTHM, +S1, +S2. absent: Murmur - GI/Abdominal Exam GI & Abdominal Exam: Soft, Normal Bowel Sounds. absent: Tenderness - Extremities Exam Extremities Exam: Full ROM, Normal Capillary Refill, Normal Inspection. absent : Joint Swelling, Pedal Edema - Back Exam Back Exam: NORMAL INSPECTION - Neurological Exam Neurological Exam: Alert, Awake, CN II-XII Intact, Normal Gait, Oriented x3 - Psychiatric Exam Psychiatric exam: Normal Affect, Normal Mood - Skin Skin Exam: Dry, Intact, Normal Color, Warm Assessment and Plan - Assessment and Plan (Free Text) Assessment: Influenza Like Illness Peak flow 150 flu negative, strep negative Pulm ([facility]) Duonebs q4h Solumedrol 40mg ivp q12h Ceftriaxone 1gm daily Azithromycin 500mg daily Robitussin Q4H for cough T Wave Inversions Cardio ([facility]) asa 81 qd Trops negative ECHO f/u HTN Amlodipine 2.5mg po daily HCTZ 25mg po daily Losartan 25mg po daily started HLD Crestor 2.5 mg HS Prophylaxis SCD Lovenox 30 SC QD Heart Healthy Diet GI PPX not indicated
--- NOTE | 2017-12-30 15:59 | CP.PCM.PN ---
Subjective - Date & Time of Evaluation Date of Evaluation: 12/30/17 Time of Evaluation: 11:00 - Subjective Subjective: Patient seen and examined at bedside. Afebrile since admission. 1. Asthma exacerbation - CXR 12/29: No active pulmonary disease - Afebrile - CBC 12/30: WBC 14.9, up from 8.4, neutros 80, consider infection vs. steroid- induced demargination - Flu negative, group A strep antigen negative - Nebullizer treatments - solumedrol - IV zithromax and rocephin - Peak flow 150. Pulse ox 94% on RA - ABG 2. Acute cough, unclear etiology - 12/29 Pro BNP: 80.2 - Dr. Iyer, cardiology recommended switching from KORTNEY inhibitor to ARB. Losartan to be started today by primary team. Objective - Vital Signs/Intake and Output Vital Signs (last 24 hours): Temp Pulse Resp BP Pulse Ox 97.6 F 54 L 20 117/74 96 12/30/17 07:10 12/30/17 08:03 12/30/17 07:10 12/30/17 07:10 12/30/17 07:10 Intake and Output: 12/30/17 12/30/17 06:59 18:59 Intake Total 650 Balance 650 - Medications Medications: Current Medications Albuterol/Ipratropium (Duoneb 3 Mg/0.5 Mg (3 Ml) Ud) 3 ml INH RQ4 [facility] Last Admin: 12/30/17 15:28 Dose: 3 ml Amlodipine Besylate (Norvasc) 2.5 mg PO DAILY [facility] Last Admin: 12/30/17 09:27 Dose: 2.5 mg Aspirin (Ecotrin) 81 mg PO DAILY [facility] Last Admin: 12/30/17 11:23 Dose: 81 mg Enoxaparin Sodium (Lovenox) 30 mg SC DAILY [facility] Ergocalciferol (Drisdol 50,000 Intl Units Cap) 1 cap PO QWK [facility] Guaifenesin (Robitussin) 100 mg PO Q4H PRN PRN Reason: Cough Hydrochlorothiazide (Hydrodiuril) 25 mg PO DAILY [facility] Last Admin: 12/30/17 09:27 Dose: 25 mg Ceftriaxone Sodium 1 gm/ (Sodium Chloride) 100 mls @ 100 mls/hr IVPB DAILY [facility] PRN Reason: Protocol Last Admin: 12/30/17 09:28 Dose: 100 mls/hr Azithromycin 500 mg/ Sodium (Chloride) 250 mls @ 250 mls/hr IVPB DAILY [facility] PRN Reason: Protocol Last Admin: 12/30/17 11:23 Dose: 250 mls/hr Losartan Potassium (Cozaar) 25 mg PO DAILY [facility] Last Admin: 12/30/17 09:27 Dose: 25 mg Methylprednisolone (Solu-Medrol) 40 mg IVP Q12 [facility] Last Admin: 12/30/17 11:24 Dose: 40 mg Pneumococcal Polyvalent Vaccine (Pneumovax 23 Vaccine) 0.5 ml IM .ONCE ONE Stop: 01/01/18 10:01 Rosuvastatin Calcium (Crestor) 2.5 mg PO HS [facility] Last Admin: 12/29/17 21:25 Dose: 2.5 mg - Labs Labs: 12/30/17 07:51 12/30/17 07:20
--- NOTE | 2017-12-30 17:33 | CARD ---
APPROVED REPORT EXAM: Two-dimensional and M-mode echocardiogram with Doppler and color Doppler. Other Information Quality : GoodRhythm : INDICATION Abnormal EKG/Arrhythmia Murmur 2D DIMENSIONS IVSd0.9 (0.7-1.1cm)LVDd5.3 (3.9-5.9cm) PWd1.1 (0.7-1.1cm)LVDs2.7 (2.5-4.0cm) FS (%) 48.9 %LVEF (%)70.0 (>50%) M-Mode DIMENSIONS Left Atrium (MM)3.81 (2.5-4.0cm)Aortic Root3.06 (2.2-3.7cm) Mitral Valve MV E Rgyymett563.6cm/sMV A Uworwqvo993.7cm/sE/A ratio0.9 TDI E/Lateral E'0.0E/Medial E'0.0 Tricuspid Valve TR Peak [id number]/sTR Peak Gr.37mmHg LEFT VENTRICLE The left ventricle is normal size. There is normal left ventricular wall thickness. The left ventricular function is normal. The left ventricular ejection fraction is within the normal range. There is normal LV segmental wall motion. Transmitral Doppler flow pattern is Grade I-abnormal relaxation pattern. RIGHT VENTRICLE The right ventricle is normal size. There is normal right ventricular wall thickness. The right ventricular systolic function is normal. ATRIA The left atrium size is normal. The right atrium size is normal. AORTIC VALVE The aortic valve is mildly thickened. No aortic regurgitation is present. There is no aortic valvular stenosis. MITRAL VALVE The mitral valve is mildly thickened. There is no mitral valve stenosis. Mitral regurgitation is trace. TRICUSPID VALVE There is mild tricuspid regurgitation. There is mild pulmonary hypertension. PULMONIC VALVE There is mild pulmonic valvular regurgitation. GREAT VESSELS The aortic root is normal in size. The IVC was not visualized. PERICARDIAL EFFUSION There is a trace circumferential pericardial effusion. <Conclusion> The left ventricle is normal size. There is normal left ventricular wall thickness. The left ventricular function is normal. The left ventricular ejection fraction is within the normal range. There is normal LV segmental wall motion. Transmitral Doppler flow pattern is Grade I-abnormal relaxation pattern. There is mild tricuspid regurgitation. There is mild pulmonary hypertension.
[2017-12-30] MEDS: guaiFENesin 100 mg/5 ml Syrup UD PO PRN ×2 (17:34→21:35)
--- NOTE | 2017-12-30 17:47 | CP.PCM.PN ---
Subjective - Date & Time of Evaluation Date of Evaluation: 12/30/17 Time of Evaluation: 12:00 - Subjective Subjective: today pt states her cp increases with laying flat. she also has burning sensation in her throat and occasional abd pain after eating. trop are negative. Objective - Vital Signs/Intake and Output Vital Signs (last 24 hours): Temp Pulse Resp BP Pulse Ox 97.2 F L 70 19 127/87 98 12/30/17 16:05 12/30/17 16:05 12/30/17 16:05 12/30/17 16:05 12/30/17 16:05 Intake and Output: 12/30/17 12/30/17 06:59 18:59 Intake Total 650 Balance 650 - Medications Medications: Current Medications Albuterol/Ipratropium (Duoneb 3 Mg/0.5 Mg (3 Ml) Ud) 3 ml INH RQ4 [facility] Last Admin: 12/30/17 15:28 Dose: 3 ml Amlodipine Besylate (Norvasc) 2.5 mg PO DAILY [facility] Last Admin: 12/30/17 09:27 Dose: 2.5 mg Aspirin (Ecotrin) 81 mg PO DAILY [facility] Last Admin: 12/30/17 11:23 Dose: 81 mg Enoxaparin Sodium (Lovenox) 30 mg SC DAILY [facility] Ergocalciferol (Drisdol 50,000 Intl Units Cap) 1 cap PO QWK [facility] Guaifenesin (Robitussin) 100 mg PO Q4H PRN PRN Reason: Cough Last Admin: 12/30/17 17:34 Dose: 100 mg Hydrochlorothiazide (Hydrodiuril) 25 mg PO DAILY [facility] Last Admin: 12/30/17 09:27 Dose: 25 mg Ceftriaxone Sodium 1 gm/ (Sodium Chloride) 100 mls @ 100 mls/hr IVPB DAILY [facility] PRN Reason: Protocol Last Admin: 12/30/17 09:28 Dose: 100 mls/hr Azithromycin 500 mg/ Sodium (Chloride) 250 mls @ 250 mls/hr IVPB DAILY [facility] PRN Reason: Protocol Last Admin: 12/30/17 11:23 Dose: 250 mls/hr Losartan Potassium (Cozaar) 25 mg PO DAILY [facility] Last Admin: 12/30/17 09:27 Dose: 25 mg Methylprednisolone (Solu-Medrol) 40 mg IVP Q12 [facility] Last Admin: 12/30/17 11:24 Dose: 40 mg Pneumococcal Polyvalent Vaccine (Pneumovax 23 Vaccine) 0.5 ml IM .ONCE ONE Stop: 01/01/18 10:01 Rosuvastatin Calcium (Crestor) 2.5 mg PO HS [facility] Last Admin: 12/29/17 21:25 Dose: 2.5 mg - Labs Labs: 12/30/17 07:51 12/30/17 07:20 - Constitutional Appears: Well - Head Exam Head Exam: ATRAUMATIC, NORMAL INSPECTION, NORMOCEPHALIC - Eye Exam Eye Exam: EOMI, Normal appearance, PERRL. absent: Conjunctival injection, Nystagmus, Periorbital swelling, Periorbital tenderness, Scleral icterus Pupil Exam: NORMAL ACCOMODATION, PERRL - ENT Exam ENT Exam: Mucous Membranes Moist, Normal Exam. absent: Mucous Membranes Dry, Normal External Ear Exam, Normal Oropharynx, TM's Normal Bilaterally - Neck Exam Neck Exam: Full ROM, Normal Inspection. absent: Lymphadenopathy, Meningismus, Tenderness, Thyromegaly - Respiratory Exam Respiratory Exam: Clear to Ausculation Bilateral, NORMAL BREATHING PATTERN. absent: Accessory Muscle Use, Chest Wall Tenderness, Decreased Breath Sounds, Prolonged Expiratory Phase, Rales, Rhonchi, Wheezes, Respiratory Distress, Stridor - Cardiovascular Exam Cardiovascular Exam: REGULAR RHYTHM, +S1, +S2, Murmur. absent: Bradycardia, Tachycardia, Clicks, Diastolic murmur, Gallop, Irregular Rhythm, JVD, RRR, Rubs , +S4 - GI/Abdominal Exam GI & Abdominal Exam: Soft, Normal Bowel Sounds. absent: Bruit, Distended, Firm , Guarding, Rigid, Tenderness, Diminished Bowel Sounds, Hernia, Hyperactive Bowel Sounds, Hypoactive Bowel Sounds, Organomegaly, Pulsatile Mass, Rebound, Mass - Rectal Exam Rectal Exam: Deferred - Extremities Exam Extremities Exam: Full ROM, Normal Capillary Refill, Normal Inspection. absent : Joint Swelling, Pedal Edema - Back Exam Back Exam: NORMAL INSPECTION - Neurological Exam Neurological Exam: Alert, Awake, CN II-XII Intact, Normal Gait, Oriented x3 - Psychiatric Exam Psychiatric exam: Normal Affect, Normal Mood - Skin Skin Exam: Dry, Intact, Normal Color, Warm Assessment and Plan (1) Abnormal EKG Status: Acute (2) Chest pain Status: Acute (3) SOB (shortness of breath) Status: Acute (4) Edema Status: Acute (5) Murmur, cardiac Status: Acute - Assessment and Plan (Free Text) Plan: pt has MSK cp, however she may also have underlying GERD. Should consider GERD as a cause for her cough and wheezing. consider gi eval of treating medically.
[2017-12-30] MEDS: Pantoprazole 40 mg EC Tab PO SCH (18:03)
[2017-12-30] MEDS ORDERED: Bisacodyl 5mg EC Tab PO ONE (19:24)
--- NOTE | 2017-12-30 20:46 | CARD ---
APPROVED REPORT EKG Measurement Heart [id number] <Conclusion> Normal sinus rhythm Minimal voltage criteria for LVH, may be normal variant Nonspecific T wave abnormality Abnormal ECG
[2017-12-30] MEDS: Rosuvastatin Calcium 2.5 mg Tab PO SCH (21:35)
[2017-12-31] VITALS: RESP 20
[2017-12-31] MEDS: Albuterol-Ipratrop 3 mg / 0.5 (3 ml) UD INH SCH ×6 (00:32→19:48)
[2017-12-31 08:29] LABS: BASO # 0.1 K/uL (0.0-0.2); BASO % 0.3 % (0.0-2.0); HEMOGLOBIN 12.3 g/dL (11.0-16.0); LYMPH # 2.6 K/uL (1.0-4.3); LYMPH % 14.3 % (20.0-40.0); MEAN CELL VOLUME 90.9 fL (81.0-99.0); MEAN CORPUSCULAR HEMOGLOBIN 30.7 pg (27.0-31.0); MEAN CORPUSCULAR HGB CONC 33.8 g/dL (33.0-37.0); MONO % 5.7 % (0.0-10.0); NEUT # 14.4 K/uL (1.8-7.0); NEUT % 79.7 % (50.0-75.0); RBC 4.01 Mil/uL (3.80-5.20); RED CELL DISTRIBUTION WIDTH 13.5 % (11.5-14.5); WHITE BLOOD COUNT 18.1 K/uL (4.8-10.8)
[2017-12-31 08:41] LABS: ALBUMIN 4.1 g/dL (3.5-5.0); ALT/SGPT 11 U/L (9-52); AST/SGOT 20 U/L (14-36); BLOOD UREA NITROGEN 14 mg/dL (7-17); CALCIUM 9.3 mg/dl (8.6-10.4); GFR AFRICAN-AMERICAN > 60; GFR NON-AFRICAN AMERICAN > 60
[2017-12-31] MEDS ORDERED: Vancomycin 1 gm/NS 200 ml 1 GM/200 ML BAG IVPB STA (09:01)
[2017-12-31] MEDS ORDERED: Enoxaparin 30 mg Syringe SC SCH (10:00)
[2017-12-31] MEDS: MethylPREDNISolone 40 mg Vial IVP SCH (10:31)
[2017-12-31] MEDS: Pantoprazole 40 mg EC Tab PO SCH (10:31)
[2017-12-31] MEDS: Azithromycin 500 MG in Sodium Chloride 0.9% 250 ML IVPB SCH (13:06)
[2017-12-31] MEDS ORDERED: guaiFENesin 100 mg/5 ml Syrup UD PO ONE (13:39)
[2017-12-31 16:02] VITALS: BP 159/83; PULSE 72; TEMP 97.4; O2SAT 95
--- NOTE | 2017-12-31 16:20 | CP.PCM.PN ---
Subjective - Date & Time of Evaluation Date of Evaluation: 12/31/17 Time of Evaluation: 12:00 - Subjective Subjective: symptoms improving Objective - Vital Signs/Intake and Output Vital Signs (last 24 hours): Temp Pulse Resp BP Pulse Ox 97.4 F L 72 20 159/83 H 95 12/31/17 16:01 12/31/17 16:01 12/31/17 16:01 12/31/17 16:01 12/31/17 16:01 Intake and Output: 12/31/17 12/31/17 06:59 18:59 Intake Total 700 730 Balance 700 730 - Medications Medications: Current Medications Albuterol/Ipratropium (Duoneb 3 Mg/0.5 Mg (3 Ml) Ud) 3 ml INH RQ4 [facility] Last Admin: 12/31/17 11:59 Dose: 3 ml Amlodipine Besylate (Norvasc) 2.5 mg PO DAILY [facility] Last Admin: 12/31/17 10:31 Dose: 2.5 mg Aspirin (Ecotrin) 81 mg PO DAILY [facility] Last Admin: 12/31/17 10:31 Dose: 81 mg Docusate Sodium (Colace) 100 mg PO BID [facility] Last Admin: 12/31/17 10:31 Dose: 100 mg Enoxaparin Sodium (Lovenox) 30 mg SC DAILY [facility] Last Admin: 12/31/17 10:31 Dose: 30 mg Ergocalciferol (Drisdol 50,000 Intl Units Cap) 1 cap PO QWK [facility] Guaifenesin (Robitussin) 100 mg PO Q4H PRN PRN Reason: Cough Last Admin: 12/30/17 21:35 Dose: 100 mg Hydrochlorothiazide (Hydrodiuril) 25 mg PO DAILY [facility] Last Admin: 12/31/17 10:31 Dose: 25 mg Ceftriaxone Sodium 1 gm/ (Sodium Chloride) 100 mls @ 100 mls/hr IVPB DAILY [facility] PRN Reason: Protocol Last Admin: 12/31/17 11:30 Dose: 100 mls/hr Azithromycin 500 mg/ Sodium (Chloride) 250 mls @ 250 mls/hr IVPB DAILY [facility] PRN Reason: Protocol Last Admin: 12/31/17 13:06 Dose: 250 mls/hr Losartan Potassium (Cozaar) 25 mg PO DAILY [facility] Last Admin: 12/31/17 10:31 Dose: 25 mg Methylprednisolone (Solu-Medrol) 40 mg IVP Q12 [facility] Last Admin: 12/31/17 10:31 Dose: 40 mg Pantoprazole Sodium (Protonix Ec Tab) 40 mg PO DAILY [facility] Last Admin: 12/31/17 10:31 Dose: 40 mg Pneumococcal Polyvalent Vaccine (Pneumovax 23 Vaccine) 0.5 ml IM .ONCE ONE Stop: 01/01/18 10:01 Rosuvastatin Calcium (Crestor) 2.5 mg PO HS [facility] Last Admin: 12/30/17 21:35 Dose: 2.5 mg - Labs Labs: 12/31/17 08:13 12/31/17 08:13 - Constitutional Appears: Well - Head Exam Head Exam: ATRAUMATIC, NORMAL INSPECTION, NORMOCEPHALIC - Eye Exam Eye Exam: EOMI, Normal appearance, PERRL. absent: Conjunctival injection, Nystagmus, Periorbital swelling, Periorbital tenderness, Scleral icterus Pupil Exam: NORMAL ACCOMODATION, PERRL - ENT Exam ENT Exam: Mucous Membranes Moist, Normal Exam. absent: Mucous Membranes Dry, Normal External Ear Exam, Normal Oropharynx, TM's Normal Bilaterally - Neck Exam Neck Exam: Full ROM, Normal Inspection - Respiratory Exam Respiratory Exam: Clear to Ausculation Bilateral, NORMAL BREATHING PATTERN. absent: Accessory Muscle Use, Chest Wall Tenderness, Decreased Breath Sounds, Prolonged Expiratory Phase, Rales, Rhonchi, Wheezes, Respiratory Distress, Stridor - Cardiovascular Exam Cardiovascular Exam: REGULAR RHYTHM, +S1, +S2, Murmur. absent: Bradycardia, Tachycardia, Clicks, Diastolic murmur, Gallop, Irregular Rhythm, JVD, RRR, Rubs , +S4 - GI/Abdominal Exam GI & Abdominal Exam: Soft, Normal Bowel Sounds. absent: Bruit, Distended, Firm , Guarding, Rigid, Tenderness, Diminished Bowel Sounds, Hernia, Hyperactive Bowel Sounds, Hypoactive Bowel Sounds, Organomegaly, Pulsatile Mass, Rebound, Mass - Extremities Exam Extremities Exam: Full ROM, Normal Capillary Refill, Normal Inspection, Pedal Edema. absent: Joint Swelling - Back Exam Back Exam: NORMAL INSPECTION - Neurological Exam Neurological Exam: Alert, Awake, CN II-XII Intact, Oriented x3 - Psychiatric Exam Psychiatric exam: Normal Affect, Normal Mood - Skin Skin Exam: Dry, Intact, Normal Color, Warm Assessment and Plan (1) Abnormal EKG Status: Acute (2) Chest pain Status: Acute (3) SOB (shortness of breath) Status: Acute (4) Edema Status: Acute (5) Murmur, cardiac Status: Acute - Assessment and Plan (Free Text) Plan: treat gerd no acei mi ruled out. vss please recall if needed thank you.
--- NOTE | 2017-12-31 18:08 | CP.PCM.DIS ---
Provider - Provider Date of Admission: 12/29/17 10:03 Attending physician: Toño Schumacher Jr, MD Consults: Cards: Jaylon Dotson: Mario Time Spent in preparation of Discharge (in minutes): 45 Hospital Course - Lab Results Lab Results: Micro Results 12/29/17 08:22 Throat Group A Strep Throat Culture - Final NO BETA STREP GROUP A ISOLATED. Most Recent Lab Values WBC 18.1 K/uL (4.8-10.8) H 12/31/17 08:13 RBC 4.01 Mil/uL (3.80-5.20) 12/31/17 08:13 Hgb 12.3 g/dL (11.0-16.0) 12/31/17 08:13 Hct 36.5 % (34.0-47.0) 12/31/17 08:13 MCV 90.9 fL (81.0-99.0) 12/31/17 08:13 MCH 30.7 pg (27.0-31.0) 12/31/17 08:13 MCHC 33.8 g/dL (33.0-37.0) 12/31/17 08:13 RDW 13.5 % (11.5-14.5) 12/31/17 08:13 Plt Count 233 K/uL (130-400) 12/31/17 08:13 MPV 10.0 fL (7.2-11.7) 12/31/17 08:13 Neut % (Auto) 79.7 % (50.0-75.0) H 12/31/17 08:13 Lymph % (Auto) 14.3 % (20.0-40.0) L 12/31/17 08:13 Richardson % (Auto) 5.7 % (0.0-10.0) 12/31/17 08:13 Eos % (Auto) 0.0 % (0.0-4.0) 12/31/17 08:13 Baso % (Auto) 0.3 % (0.0-2.0) 12/31/17 08:13 Neut # (Auto) 14.4 K/uL (1.8-7.0) H 12/31/17 08:13 Lymph # (Auto) 2.6 K/uL (1.0-4.3) 12/31/17 08:13 Richardson # (Auto) 1.0 K/uL (0.0-0.8) H 12/31/17 08:13 Eos # (Auto) 0.0 K/uL (0.0-0.7) 12/31/17 08:13 Baso # (Auto) 0.1 K/uL (0.0-0.2) 12/31/17 08:13 Sodium 144 mmol/L (132-148) 12/31/17 08:13 Potassium 3.9 mmol/L (3.6-5.2) 12/31/17 08:13 Chloride 100 mmol/L (98-107) 12/31/17 08:13 Carbon Dioxide 29 mmol/L (22-30) 12/31/17 08:13 Anion Gap 19 (10-20) 12/31/17 08:13 BUN 14 mg/dL (7-17) 12/31/17 08:13 Creatinine 0.6 mg/dL (0.7-1.2) L 12/31/17 08:13 Est GFR ( Amer) > 60 12/31/17 08:13 Est GFR (Non-Af Amer) > 60 12/31/17 08:13 Random Glucose 143 mg/dL (65-105) H 12/31/17 08:13 Hemoglobin A1c 6.5 % (4.2-6.5) 12/30/17 07:20 Calcium 9.3 mg/dl (8.6-10.4) 12/31/17 08:13 Phosphorus 3.6 mg/dL (2.5-4.5) 12/31/17 08:13 Magnesium 2.3 mg/dL (1.6-2.3) 12/31/17 08:13 Total Bilirubin 0.4 mg/dL (0.2-1.3) 12/31/17 08:13 AST 20 U/L (14-36) 12/31/17 08:13 ALT 11 U/L (9-52) 12/31/17 08:13 Alkaline Phosphatase 65 U/L (38-126) 12/31/17 08:13 Total Creatine Kinase 24 U/L (30-135) L 12/30/17 01:30 CK-MB (Mass) 0.47 ng/mL (0.0-3.38) 12/30/17 01:30 Troponin I < 0.0120 ng/mL (0.00-0.120) 12/30/17 01:30 NT-Pro-B Natriuret Pep 80.2 pg/mL (0-900) 12/29/17 13:33 Total Protein 8.1 g/dL (6.3-8.3) 12/31/17 08:13 Albumin 4.1 g/dL (3.5-5.0) 12/31/17 08:13 Globulin 4.0 gm/dL (2.2-3.9) H 12/31/17 08:13 Albumin/Globulin Ratio 1.0 (1.0-2.1) 12/31/17 08:13 Triglycerides 49 mg/dL (0-149) 12/30/17 07:20 Cholesterol 153 mg/dL (0-199) 12/30/17 07:20 LDL Cholesterol Direct 47 mg/dL (0-129) 12/30/17 07:20 HDL Cholesterol 62 mg/dL (30-70) 12/30/17 07:20 Procalcitonin 0.14 NG/ML (0.19-0.49) L 12/31/17 11:07 Free T4 1.15 ng/dL (0.78-2.19) 12/30/17 07:20 Total T3 1.12 nmol/L (1.49-2.60) L 12/30/17 07:20 TSH 3rd Generation 0.51 mIU/L (0.46-4.68) 12/30/17 07:20 Influenza Typ A,B (EIA) Negative for flu a/b (NEGATIVE) 12/29/17 08:22 Ur L.pneumophila Ag Negative (NEGATIVE) 12/30/17 09:54 Mycoplasma pneumon IgM Negative (NEGATIVE) 12/30/17 13:43 Grp A Beta Strep Ag Negative (NEGATIVE) 12/29/17 08:22 - Hospital Course Hospital Course: 72 year old female with past medical history of hypertension, hyperlipidemia, pneumonia and GERD presents to the ED with complaint of cough, sore throat, difficulty breathing for two weeks, and generalized body aches.Patient is Ma[place] speaking and her is at bedside. Patient states for the past two weeks she has had a productive cough that is constant throughout the day and keeps her awake at night. Patient states she has come to the ED today because her symptoms have not gotten better. She states the phlegm is white and thick. With the cough, she states she has had a sore throat, headache and sinus pressure for the two weeks as well. Patient admits to difficulty walking up more than one flight of stairs. Patient denies current fevers or chills but admits to subjective fever last week and total body aches. Patient also complains of diffuse chest pain which she says she has had since she had pneumonia 1 year ago. She says the aches are deep and constant. Patient denies trial of any over the counter medications nor any alleviating factors. Patient is from the [facility] [place]. She is a potential poor historian. She states she had a procedure requiring femoral IV access but cannot remember if it was for her heart or for peripheral vascular disease. Patient has been admitted to hospital in the past for pneumonia 1 year ago. Patient denies recent travel or sick contacts. Patient was treated for asthma exacerbation. She was started on antibiotics for a possible pneumonia although this was unlikely. She had an episode of chest pain but acute ischemia was ruled out. Her breathing improved thru her admission. She began to have some gerd symptoms likely contributing to her cough. Those symptoms were treated and resolved. She is stable for discharge. Discharge Exam - Head Exam Head Exam: ATRAUMATIC, NORMAL INSPECTION, NORMOCEPHALIC - Eye Exam Eye Exam: EOMI, Normal appearance, PERRL Pupil Exam: NORMAL ACCOMODATION, PERRL - GI/Abdominal Exam GI & Abdominal Exam: Normal Bowel Sounds - Neurological Exam Neurological exam: Alert, CN II-XII Intact, Normal Gait, Oriented x3, Reflexes Normal - Psychiatric Exam Psychiatric exam: Normal Affect, Normal Mood - Skin Skin Exam: Dry, Intact, Normal Color, Warm Discharge Plan - Follow Up Plan Condition: STABLE Disposition: HOME/ ROUTINE Additional Instructions: Please follow up with Primary care doctor in one week. Please have stress test set up with head mechanic. I have attached the information for the head mechanic you saw while in the hospital. Please take medication prescribed Please come back to the ED if symptoms return Please follow up with your primary medical doctor in 7-10 days Referrals: Jordan Iyer MD [Staff Provider] -
[2018-01-01] MEDS ORDERED: Pneumococcal 23-Valent Vaccine IM ONE (10:00)
[2018-01-05] MEDS ORDERED: Ergocalciferol 50,000 Intl Units Cap PO SCH (10:00)
== END 2017-12-31 21:07 | disposition home or self-care (01) | DRG 203 ==
LOC: C.ER 07:50 → C.9E 10:03 → C.9I 11:29 → C.9E 11:41 → C.5S 11:53
PROVIDERS: ADMIT Internal Medicine; ATTEND Internal Medicine
DX: J45.901 Unspecified asthma with (acute) exacerbation (principal); I10 Essential (primary) hypertension; E78.5 Hyperlipidemia, unspecified; R09.02 Hypoxemia; Z87.01 Personal history of pneumonia (recurrent); K21.9 Gastro-esophageal reflux disease without esophagitis

== ENCOUNTER 2018-10-25 10:37 | Outpatient (CLI) | payer MEDICARE | END 2018-10-25 10:38 | disposition home or self-care (01) | LOC: C.MRIC 10:37 | DX: M25.512 Pain in left shoulder (principal) ==

== ENCOUNTER 2018-12-17 10:37 | Outpatient (CLI) | payer MEDICARE | END 2018-12-17 10:38 | disposition home or self-care (01) | LOC: C.RADH 10:37 ==